=== PATIENT | female | born 1985 | race Caucasian/White ===

== ENCOUNTER → 2019-12-29 | Outpatient (CLI) | payer MEDICAID, SELFPAY | END | disposition home or self-care (01) | LOC: LABSPEC 17:47 | PROVIDERS: PCP Student in an Organized Health Care Education/Training Program; Referring Provider Nurse Practitioner Primary Care; Visit Provider Nurse Practitioner Primary Care | DX: Z20.828 Contact with and (suspected) exposure to other viral communicable diseases (principal) | CPT/HCPCS: 87635; G2023; U0003 ==

== ENCOUNTER 2020-08-07 06:41 | Emergency (ER) | payer MEDICAID, SELFPAY ==
[2020-08-07 06:42] VITALS: BP 154/94; PULSE 68; RESP 16; TEMP 36.1; O2SAT 100; BMI 57.5
[2020-08-07 06:46] VITALS: PULSE 67; RESP 16
--- NOTE | 2020-08-07 06:52 | RAD_ITS ---
STUDY: X-RAY CHEST REASON FOR EXAM: Female, 35 years old. chest pain TECHNIQUE: Single AP portable view of the chest. COMPARISON: 06/20/2017 FINDINGS: The lungs are clear and expanded. There is no demonstrated pleural abnormality. Normal size heart. Normal mediastinum and kaleigh. Normal visualized pulmonary arteries. Normal visualized aortic arch and descending thoracic aorta. Normal visualized thoracic spine. Normal visualized ribs, clavicles, and shoulders. There is no demonstrated abnormality of the visualized soft tissue structures of the upper abdomen. RAD/Chest 1 View (Portable) IMPRESSION: Normal x-ray examination of the chest. Electronically Signed: Loco Hernnádez MD at 7:26 EST Tel , Service support ,
--- NOTE | 2020-08-07 06:52 | ED.DCSUM_ITS ---
History of Present Illness <Aleta Chiu - Last Filed: 08/07/20 16:34> Informant: Patient Onset: Yesterday Activity at onset: - - Random Timing: Intermittent - Multiple episodes, Lasts - Anywhere from 10 minutes to almost an hour Quality: Aching Location: Substernal - With radiation in mid upper back, opposite area of the discomfort with some numbness there when the pain is present. Current Severity: Gone Maximum Severity: Moderate Worsened By: Nothing. Not Worsened By: Exertion, Breathing Relieved By: Nothing Associated Symptoms: Lightheadedness - This morning, just after an episode, short-lived without other associated symptoms. Negative for: Nausea, Vomiting, Diaphoresis, Dyspnea, Cough, Fever, Palpitations Narrative: 35-year-old female presenting with intermittent chest pain for almost 24 hours. Seems to occur randomly, sometimes when lying down, other times when at rest and upright. Does not seem exertional and is nonpleuritic. No radiation to jaw or arms but she does feel it in her back at times and sometimes states he feels a l ittle numb in the back when the discomfort is there. It is gone currently. She came in this morning because after one of the episode she had some lightheadedness without near syncope. No palpitations associated with that, no nausea or diaphoresis. She is a smoker but uses no illicit substances. Her father at age 52 of heart complications, details unknown. CVD Risk Factors: Family History 1' </=55, Smoking. Negative for: Hypertension, Diabetes, Hypercholesterolemia PE Risk Factors: Negative for: Recent Travel/Surgery, Recenet Immobilization, Prior DVT or PE, Cancer, OCP + Smoking + >/=35 <Kev Montaño - Last Filed: 08/09/20 16:22> Chief Complaint: Chest Pain Past Medical History <MadelinyolandaAleta - Last Filed: 08/07/20 16:34> Past Medical History: None Surgical History: cholecystectomy Smoking Status: Current every day smoker Drugs: None <Kev Montaño - Last Filed: 08/09/20 16:22> - Allergies and Home Meds Allergies/Adverse Reactions: Allergies cephalexin [Cephalexin] Allergy (Verified 08/07/20 06:44) Rash sulfamethoxazole [From Septra] Allergy (Verified 08/07/20 06:44) Rash trimethoprim [From Septra] Allergy (Verified 08/07/20 06:44) Rash venlafaxine HCl [From Effexor] Allergy (Verified 08/07/20 06:44) Other Primary Care Physician: Jeff Anderson DO [Primary Care Provider] - 3-5 Days if not improving Review of Systems General: Denies: Chills, Fever, Sweats Eyes: Denies: Visual changes - bilaterally, Diplopia ENT: Denies: Bilateral ear pain, Rhinorrhea, Sore throat Cardiovascular: Reports: Chest pain. Denies: Palpitations Respiratory: Denies: Dyspnea, Cough, Dyspnea on exertion Gastrointestinal: Denies: Abdominal pain, Nausea, Vomiting, Diarrhea, Melena, Hematochezia Genitourinary: Denies: Dysuria, Hematuria, Frequency Musculoskeletal: Reports: Back pain. Denies: Swelling, Extremity Pain Skin: Denies: Rash, Wounds Neurological: Denies: Headache, Weakness, Numbness <Kev Montaño - Last Filed: 08/09/20 16:22> Physical Exam Vital Signs/Narrative: Vital Signs Temp Pulse Resp BP Pulse Ox 08/07/20 06:46 67 16 08/07/20 06:42 96.9 F L 68 16 154/94 H 100 <Aleta Chiu - Last Filed: 08/07/20 16:34> Vital Signs/Narrative: Vital Signs Temp Pulse Resp BP Pulse Ox 08/07/20 06:46 67 16 08/07/20 06:42 96.9 F L 68 16 154/94 H 100 Inital Vital Signs reviewed: Yes General: Well nourished, Well developed, Obese, No Acute Distress Head: Normocephalic, Atraumatic Eyes: Perrl, EOMI ENT: Moist mucous membranes, No rhinorrhea Neck: Supple, Nontender Cardiovascular: Regular rate, Regular rhythm, No murmurs, - - Equal 2+/4 bilateral radial pulses. Negative for: Tachycardia Respiratory: No distress, CTA bilaterally, Chest nontender Abdomen: Soft, Nontender, Nondistended, Normal bowel sounds Back: Nontender, Normal Inspection Extremities: Nontender, No edema. Negative for: Calf Tenderness Skin: Normal color, No rash, No Trauma Neurological: Alert, Oriented x3, Cranial nerves II-XII grossly intact, Normal Strength, Normal Sensation, Normal Gait Psychological: Normal affect, Normal Mood <Kev Montaño - Last Filed: 08/09/20 16:22> Diagnostic/Tx/Re-eval - Medical Decision Making Patient signed out to me to full lab results and for reevaluation. Patient had intermittent episodes of chest discomfort radiating to her back the past 24 hours. She is also had dizziness. On my evaluation she easily complained of dizziness. She is hemodynamically stable. Her work-up is largely negative with no acute abnormalities on EKG, troponin, chest x-ray, CBC or BMP. Patient has a mild elevation of her hemoglobin but this might be secondary to her chronic smoking. Will obtain orthostatics and give a DuoNeb as patient does have some mild wheezing on exam. Statics are negative. Patient does have improvement of breath sounds with DuoNeb. Exact cause of her symptoms not clear however think she is stable for follow-up. Patient is placed on a short course of PPI in case she has GERD/esophagitis as a cause her symptoms. Patient is counseled on signs and symptoms requiring return to the emergency room. Patient is instructed to follow-up with her primary care doctor for further cardiac evaluation as she does have family history and tobacco is a risk factor. I do think she is safe for outpatient follow-up. I did discuss performing a delta troponin however given her symptoms of been intermittent over the past 24 hours think delta troponin is less necessary. Patient is agreeable with this. Patient verbalizes agreement and understand this plan. Patient discharged home in stable and improved condition. <Aleta Chiu - Last Filed: 08/07/20 16:34> Impressions Chest X-Ray 08/07/20 06:52 IMPRESSION: Normal x-ray examination of the chest. Electronically Signed: Loco Hernández MD at 7:26 EST Tel , Service support , Laboratory Tests 08/07/20 08/07/20 Range/Units 06:50 06:50 WBC 6.7 (4.4-11.0) K/mm3 RBC 4.88 (4.2-5.4) M/mm3 Hgb 15.1 H (12.0-15.0) g/dL Hct 45.4 (37-47) % MCV 93.0 (81-99) fL MCH 30.9 (27.0-32.0) pg MCHC 33.3 (32-36) g/dL RDW Std Deviation 42.9 (35.1-43.9) fl RDW Coeff of Jaiden 12.7 (11.6-14.6) % Plt Count 203 (150-450) K/mm3 MPV 10.0 (6.2-12.0) fl Immature Gran % (Auto) 0.100 (0.0-0.9) % Neut % (Auto) 60.9 (47-70) % Lymph % (Auto) 31.0 (19-41) % [place] % (Auto) 5.5 (0-10) % Eos % (Auto) 1.6 (0-5) % Baso % (Auto) 0.9 (0-1) % Absolute Neuts (auto) 4.1 (2.0-7.7) X10^3/uL Absolute Lymphs (auto) 2.07 (0.83-4.51) X10^3/uL Nucleated RBC % 0 (0-5) % Sodium 139 (136-145) mmol/L Potassium 3.9 (3.5-5.1) mmol/L Chloride 103 (98-107) mmol/L Carbon Dioxide 29.0 (21.0-32.0) mmol/L Anion Gap 7 (5-15) BUN 9 (7-18) mg/dL Creatinine 0.70 (0.55-1.02) mg/dL Estim Creat Clear Calc 128.22 ml/min Est GFR (MDRD) Af Amer 122 (>60) mL/min Est GFR (MDRD) Non-Af 101 (>60) mL/min BUN/Creatinine Ratio 12.9 (10-20) RATIO Glucose 116 H (74-106) mg/dL Calcium 9.0 (8.5-10.1) mg/dL Troponin I < 0.015 (<0.045) ng/mL - Rhythm Strip Rhythm Strip: Sinus Rhythm Rate: 71 Ectopy: None - EKG Initial EKG Interpretation: Sinus Rhythm, No Acute Injury Pattern - normal EKG Prior: Unchanged - Medical Decision Making Patient presenting with atypical chest discomfort that is unlikely acute coronary syndrome, especially in context of her normal EKG without any repolarization abnormalities. Her PERC score is 0, and her symptoms do not sound like a pulmonary embolus. We discussed that the differential includes GI etiologies, as well as cardiac. Work-up is ordered including chest x-ray and enzymes. Patient is seen just before shift change and checked out to the oncoming emergency physician, as I discussed with the patient my plan would be to allow her to be discharged home if her work-up is negative and shows nothing concerning, as long as she does not have any other concerning symptoms or findings/telemetry events while in the emergency department, to follow-up closely with her doctor possibly on a 14-day course of a PPI to see if it makes a difference. Patient was comfortable with this explanation when we discussed it. <Kev Montaño - Last Filed: 08/09/20 16:22> ED Disposition <Aleta Chiu - Last Filed: 08/07/20 16:34> <Kev Montaño - Last Filed: 08/09/20 16:22> - Plan for ED Patient: Disposition: Home or Assisted Living Instructions: ED Chest Pain, Uncertain Cause Prescriptions: Pantoprazole Sodium [Protonix] 40 mg PO DAILY #14 tab Prescription Printed Referrals: Jeff Anderson DO [Primary Care Provider] - 3-5 Days if not improving
--- NOTE | 2020-08-07 06:52 | EKG12_ITS ---
Test Reason : CP Blood Pressure : / mmHG Vent. Rate : 071 BPM Atrial Rate : 071 BPM P-R Int : 156 ms QRS Dur : 078 ms QT Int : 388 ms P-R-T Axes : 038 061 033 degrees QTc Int : 421 ms Normal sinus rhythm Normal ECG Confirmed by KATHY ROD MD ([id number]), managing editor TRINA LION ([id number]) on 08/09/2020 10:31:14 AM Referred By: BB Confirmed By:KATHY RDO MD
[2020-08-07 06:59] LABS: Absolute Lymphocyte Count 2.07 X10^3/uL (0.83-4.51); Absolute Neutrophil Count 4.1 X10^3/uL (2.0-7.7); Basophil# 0.06 X10^3/uL; Basophil% 0.9 % (0-1); Eosinophil# 0.11 X10^3/uL; Eosinophils% 1.6 % (0-5); Hematocrit 45.4 % (37-47); Hemoglobin 15.1 g/dL (12.0-15.0); Lymphocyte # 2.07 X10^3/ul (4.0); Mean Corp Hgb Conc 33.3 g/dL (32-36); Mean Corpuscular Hgb 30.9 pg (27.0-32.0); Monocyte# 0.37 X10^3/uL; Monocyte% 5.5 % (0-10); NRBC Flagged by Analyzer 0 % (0-5); Neutrophil # 4.06 X10^3/uL (2.7-7.7); Neutrophil % 60.9 % (47-70); Platelet Count 203 K/mm3 (150-450); RBC Distribution Width CV 12.7 % (11.6-14.6); RBC Distribution Width SD 42.9 fl (35.1-43.9); Red Blood Count 4.88 M/mm3 (4.2-5.4); White Blood Count 6.7 K/mm3 (4.4-11.0)
[2020-08-07 07:21] LABS: Anion Gap 7 (5-15); BUN 9 mg/dL (7-18); BUN/Creat Ratio 12.9 RATIO (10-20); Chloride 103 mmol/L (98-107); EST Glomerular Filtration Rate 101 mL/min (>60); Est Glom Filt Rate - Afr Amer 122 mL/min (>60); Estimated Creatinine Clearance 128.22 ml/min; Glucose 116 mg/dL (74-106); Potassium 3.9 mmol/L (3.5-5.1); Sodium Level 139 mmol/L (136-145)
[2020-08-07 07:49] VITALS: BP 127/69; BP 141/91; BP 159/125; PULSE 58; PULSE 64; PULSE 78
[2020-08-07 08:11] VITALS: PULSE 56; RESP 14
[2020-08-07] MEDS: Ipratropium/Albuterol Sulfate 3 ML AMPUL.NEB INHALATION (08:11)
[2020-08-07 09:25] VITALS: BP 136/88; PULSE 70; RESP 18; O2SAT 95
== END 2020-08-07 09:26 | disposition home or self-care (01) ==
PROVIDERS: Emergency Provider Emergency Medicine; PCP Student in an Organized Health Care Education/Training Program
DX: R07.89 Other chest pain (principal); R42 Dizziness and giddiness; F17.200 Nicotine dependence, unspecified, uncomplicated; E66.9 Obesity, unspecified; Z68.43 Body mass index [BMI] 50.0-59.9, adult
CPT/HCPCS: 71045; 80048; 84484; 85025; 93005; 94640; 99285; A4216

== ENCOUNTER 2021-01-04 22:44 | Emergency (ER) | payer MEDICAID, SELFPAY ==
[2021-01-04 22:45] VITALS: BP 199/101; PULSE 89; RESP 16; TEMP 36.4; O2SAT 97; BMI 57.2
--- NOTE | 2021-01-04 23:07 | EDS_ITS ---
HPI History of Present Illness Chief Complaint: Lower Extremity Injury Informant: patient Narrative Narrative: Patient is a 35-year-old female who presents to the emergency department for nontraumatic left knee pain. She states that this is a chronic issue. She has had knee pain since she was in high school. Recently flared up 2 days ago. She does take anti-inflammatories as well as muscle relaxers for this. Has not been giving her any relief. She states that she was lying in bed for 2 hours and could not fall asleep due to the pain. Any movement of the knee makes it worse. She has followed with an orthopedic doctor and has injections before in the past. She was thought to have a autoimmune disorder by her PCP and was referred to a dry box operator. She does not have an appointment until March for this. No other joint involvement. No skin rashes. No significant swelling of her leg past her baseline. She denies any systemic symptoms including any fever/chills. PFSH PFSH Home Medications Albuterol Sulfate [Proair Hfa] 1 - 2 inh PO Q4H PRN PRN 07/02/13 [History Last Taken Unknown] celecoxib 100 mg PO BID PRN 08/07/20 [History Last Taken Unknown] cyclobenzaprine 10 mg PO TID PRN PRN 08/07/20 [History Last Taken Unknown] naproxen 500 mg PO DAILY PRN PRN 08/07/20 [History Last Taken Unknown] pantoprazole 40 mg PO DAILY #14 tab 08/07/20 [Rx Last Taken Unknown] diclofenac sodium [Voltaren Arthritis Pain] 2 g TOPICAL DAILY PRN PRN 7 Days #100 g 01/05/21 [Rx Last Taken Unknown] Allergy/AdvReac Type Severity Reaction Status Date / Time cephalexin [Cephalexin] Allergy Rash Verified 01/04/21 22:44 sulfamethoxazole Allergy Rash Verified 01/04/21 22:44 [From Septra] trimethoprim [From Septra] Allergy Rash Verified 01/04/21 22:44 venlafaxine HCl Allergy Other Verified 01/04/21 22:44 [From Effexor] Social History Smoking Status: Current every day smoker tobacco type: cigarettes ROS ROS ED Constitutional Constitutional ED: Denies chills or fever(s) Eyes Eyes: Denies change in vision ENT ENT ED: Denies epistaxis or rhinorrhea Cardiovascular Cardiovascular: Denies chest pain or palpitations Respiratory/Chest Respiratory/Chest: Denies cough or dyspnea Gastrointestinal Gastrointestinal: Denies abdominal pain, diarrhea, nausea or vomiting Genitourinary Genitourinary ED: Denies dysuria, hematuria or urinary frequency Musculoskeletal Musculoskeletal: Reports arthralgias; Denies back pain or neck pain Integumentary Denies rash Neurologic Neurologic: Denies dizziness, headache(s) or weakness EXAM Physical Exam Const Vital Signs: 01/04/21 22:45 01/05/21 00:03 Temperature 97.6 F L Temperature Source Temporal Pulse Rate 89 Respiratory Rate 16 Blood Pressure 199/101 H 170/110 H Blood Pressure Mean 133 130 Pulse Ox 97 Oxygen Delivery Method Room Air Positive well nourished and well developed General Appearance ED: well developed and NAD HEENT Reports normocephalic and head/scalp atraumatic Eyes PERRL and EOMs intact bilaterally Neck supple Chest Wall inspection of chest normal Resp normal respiratory effort and clear to auscultation bilaterally Auscultation: Negative for rales, rhonchi or wheezes Cardio regular rate, regular rhythm and no murmurs GI normal to inspection, nondistended, normoactive bowel sounds and non-tender Palpation: soft; Negative for guarding or rebound tenderness present Extremity normal to inspection Extremity Narrative: Tenderness along the medial aspect of the knee. No deformity appreciated. Neurovascular intact. She does have good range of motion but does elicit pain General Extremety ED: Negative for edema General Extremity: Negative for edema Neuro no sensory deficits noted Sensorium / Orientation: alert Motor Exam: strength 5/5 throughout Psych mental status grossly normal Skin no rashes or lesions noted MDM MDM MDM Narrative Medical decision making narrative: Patient presents to the emergency department for nontraumatic knee pain that is acute on chronic. Upon arrival to the ED she is hypertensive otherwise normal vital signs. She is in no acute distress. Will check x-ray of the knee and give a dose of Toradol. Very low concern for septic arthritis. Knee x-ray interpretation: No fracture, dislocation, there is mild degenerative changes. Agree with radiologist interpretation. Patient able to ambulate on knee without difficulty. Will recommend she keep scheduled notes with the dry box operator and her orthopedic doctor. Will prescribe Voltaren gel. Recommend RICE. Return precautions are reviewed. She understands and is agreeable with plan. Discharged home in stable condition. All questions were answered. Radiography Diagnostic Testing: Radiology Impression Knee X-Ray 01/04/21 23:15 IMPRESSION: No acute findings in the left knee. at 0000 Reported and signed by: Hadley Kidd MD Electronically Signed: Hadley Kidd MD at 23:59 EDT Tel , Service support , Discharge Plan Triage Chief Complaint: Lower Extremity Injury ED Provider: Armani Rodriguez Dx/Rx/DC Orders Clinical Impression: Knee pain Instructions: ED Knee Pain of Uncertain Cause Prescriptions: New diclofenac sodium [Voltaren Arthritis Pain] 1 % gel 2 g topical DAILY PRN PRN (Reason: pain) 7 Days Qty: 100 RF: 0 No Action Albuterol Sulfate [Proair Hfa] 8.5 GM Hfa.Aer.Ad 1 - 2 inh PO Q4H PRN PRN (Reason: Asthma) RF: 0 celecoxib 100 MG capsule 100 mg PO BID PRN (Reason: Pain 1-10 Or Fever) RF: 0 cyclobenzaprine 10 MG tablet 10 mg PO TID PRN PRN (Reason: Muscle Spasm) RF: 0 naproxen 500 MG tablet 500 mg PO DAILY PRN PRN (Reason: Pain 1-10 Or Fever) RF: 0 pantoprazole 40 MG tablet 40 mg PO DAILY Qty: 14 RF: 0 Primary Care Provider: Jeff Anderson Referrals: Jeff Anderson DO [Primary Care Provider] - 3-5 Days if not improving Disposition Disposition: Home, Self Care Discharge Date/Time: 01/05/21 00:25
[2021-01-04] MEDS: Ketorolac 30 MG/ML Syringe IM (23:08)
--- NOTE | 2021-01-04 23:15 | RAD_ITS ---
EXAM: XR LEFT KNEE, 3 VIEWS : 1985 CLINICAL INDICATION: nontraumatic pain TECHNIQUE: Three views of the left knee. This report was created using [employer] report generation technology. COMPARISON: 05/24/17 FINDINGS: BONES/JOINTS: Mild tricompartmental degenerative changes. No acute fracture. No subluxation. Normal alignment. No sclerotic or destructive changes observed. SOFT TISSUES: Unremarkable. No soft tissue swelling or gas. No radiopaque foreign body. RAD/Knee 3 Views IMPRESSION: No acute findings in the left knee. at 0000 Reported and signed by: Hadley Kidd MD Electronically Signed: Hadley Kidd MD at 23:59 EDT Tel , Service support ,
[2021-01-05 00:03] VITALS: BP 170/110
== END 2021-01-05 00:25 | disposition home or self-care (01) ==
PROVIDERS: Emergency Provider Emergency Medicine; PCP Student in an Organized Health Care Education/Training Program
DX: M25.562 Pain in left knee (principal); F17.210 Nicotine dependence, cigarettes, uncomplicated; G89.29 Other chronic pain
CPT/HCPCS: 73562; 96372; 99282

== ENCOUNTER → 2021-02-27 12:52 | Outpatient (CLI) | payer MEDICAID, SELFPAY ==
--- NOTE | 2021-02-27 14:12 | NEURO ---
NCS and/or EMG Patient Report Ordering Doctor: Sammy Morgan DATE OF SERVICE: 02/27/21 Indication: Intermittent bilateral hand pain, swelling and paresthesia over the last several months. Evaluate for entrapment neuropathy. Findings: Nerve conduction studies were performed in the right and left upper extremities. The right median motor study recording the abductor pollicis brevis showed a normal amplitude, normal distal latency and normal conduction velocity. The right ulnar motor study recording the abductor digiti minimi showed a normal amplitude, normal distal latency and normal conduction velocity. Borderline focal slowing was present across the elbow. The right median sensory response recording digit two showed a normal amplitude, normal latency and borderline conduction velocity. The right ulnar sensory response recording digit five showed a normal amplitude, latency and conduction velocity. The right radial sensory response recording over the extensor snuff box showed a normal amplitude, latency and conduction velocity. The left median motor study recording the abductor pollicis brevis showed a borderline amplitude, normal distal latency and normal conduction velocity. The left ulnar motor study recording the abductor digiti minimi showed a normal amplitude, normal distal latency and normal conduction velocity. No conduction block or focal slowing was present across the elbow. The left median sensory response recording digit two showed a normal amplitude, borderline latency and mildly slowed conduction velocity. The left ulnar sensory response recording digit five showed a normal amplitude, latency and conduction velocity. The left radial sensory response recording over the extensor snuff box showed a normal amplitude, latency and conduction velocity. As routine median motor and sensory studies have a false negative rate of 25%, additional internal comparison studies were done to assess for possible median neuropathy at the wrist. These internal comparison studies (median vs. ulnar palmar mixed; median vs. ulnar sensory recording digit four; median vs. ulnar motor studies to the second lumbrical / interosseous; median vs. radial sensory studies recording digit one; median segmental sensory studies comparing the wrist-palm and palm-digit velocities) increase the electrodiagnostic sensitivity rate to 95%. However, due to statistical issues with multiple tests, it is required that at least two studies are abnormal to reduce the false positive rate to acceptable levels. Right median-ulnar sensory latencies to the ring finger showed a normal median latency compared to the ulnar. Right median-ulnar lumbrical / interosseous motor latencies showed a prolonged median latency compared to the ulnar. Left median-ulnar sensory latencies to the ring finger showed a prolonged median latency compared to the ulnar. Left median-ulnar lumbrical / interosseous motor latencies showed a prolonged median latency compared to the ulnar. Needle EMG of the left upper extremity muscles was performed. No denervation was seen in any muscle. All motor unit morphology, activation and recruitment patterns were normal. Needle EMG of the left upper extremity was omitted due to a paucity of findings in the more symptomatic limb. Impression: This is a mildly abnormal study. 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 These findings are compatible with the clinical diagnosis of carpal tunnel syndrome. 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 There is no definitive evidence of median neuropathy in the right upper extremity. Please note: electrodiagnostic testing is appropriately 95% sensitive in detecting median neuropathy across the wrist when multiple internal comparison studies are done, as was performed in this case. However, 5% of patients will have a false negative study. Presumably, in these patients, intermittent compression results in pain and paresthesias from ischemia, but without any fixed demyelination or axonal loss that can be demonstrated on electrodiagnostic studies. Thus, clinical correlation is required in the interpretation of this negative study. Santos Yusuf D.O. Multi Select Codes Neurology Neurology Interp Codes: 92701-01 Musc test done w/n test comp (interp) and 78661-94 Nr cnd test 13/> studies (interp)
== END ==
PROVIDERS: PCP Student in an Organized Health Care Education/Training Program
DX: G56.03 Carpal tunnel syndrome, bilateral upper limbs (principal)
CPT/HCPCS: 95886; 95913

== ENCOUNTER 2023-05-24 07:05 | Inpatient (IN) | payer MEDICAID, SELFPAY ==
[2023-05-24] VITALS (43 sets, daily range): BP systolic 131–178; BP diastolic 56–96; PULSE 64–93; RESP 18; TEMP 36.1–37.2; O2SAT 92–100; BMI 57.2
--- NOTE | 2023-05-24 | PLAC_PTH ---
PATIENT: CHEYENNE MEJIA V LOC: [facility] U#:[id number] AGE/SX: 38/F ROOM: WP019 RE05/24/[address]: Dr. Roxanna Escobar MD : 1985 BED: 1 DIS: 05/25/2023 SPEC #: [id number] RECD: 05/25/23 13:57 STATUS: MAHAMED REKelly #: [id number] HELGA: 05/24/23 00:[address]: Roxanna Escobar DEPT: SURGICAL PATHOLOGY RECD BY: Nikolay Carrillo ENTERED: 05/27/23 09:30 SP TYPE: PLACENTA OTHR DR: Dr. Jeff Anderson, DO Tissues: Placenta, NOS Procedures: Surgery Specimen Level V HEADER OPERATION: Vaginal delivery PRE-OP DIAGNOSIS: Chronic hypertension TISSUE SUBMITTED: Placenta MICROSCOPIC DIAGNOSIS Polo placenta (393 gm): Umbilical cord - trivascular with no evidence of inflammation. Placental membranes - mild chronic inflammation of decidua. Placental disc - focal nonspecific chronic villitis, Bala-Romulo change and mildly increased intraparenchymal fibrin plaques. AM:concetta 05/29/2023 MICROSCOPIC DESCRIPTION Slides are reviewed. GROSS DESCRIPTION SPECIMEN: PLACENTA / CLINICAL INFORMATION: A. Weight: 2.35 kg B. Gestational Age: 37 weeks C. Sex: Female PLACENTAL WEIGHT (POST FIXATION): 393 gm PLACENTAL DIMENSIONS: 15.0 x 15.0 x 3.5 cm PLACENTAL SHAPE: Usual ovoid. A detached piece of placental tissue is also noted. PLACENTAL WEIGHT FOR GESTATIONAL AGE: Within 10-99th percentile MEMBRANES - Present A. Insertion: Marginal B. Site of rupture from edge: The membranes are fragmented and appear to be ruptured at the margin of placental disc. C. Color of membrane: Randolph-miller D. Abnormalities: An area of blood clot is noted in the membrane. UMBILICAL CORD - Present A. Color: Randolph-miller B. Insertion: Paracentral C. Length: 21.0 cm D. Diameter: 0.9 cm E. Number of vessels: Three F. Abnormalities: None Also present in the container is a detached segment of umbilical cord measuring 22.0 cm in length and 0.8 to 1.2 cm in diameter. PLACENTAL DISC - Present A. Color of surface: Randolph-miller B. surface abnormalities: None C. Maternal cotyledons: Intact with minimal tears. Maternal surface appears to be disrupted and completeness of placenta cannot be assessed due to disrupted nature of the placenta. D. Attached retro placental clot: No clot E. Cut surface: Dark red and spongy F. Lesions: None G. Separate clot: Absent SECTIONS SUBMITTED: 1. Membrane roll 2. Cord, maternal end, focal area of blood clot in the membranes 3. Detached segment of umbilical cord, end 4. Placental disc, and maternal surfaces 5. Placental disc, and maternal surfaces 6. Placental disc, and maternal surfaces SJ:concetta 05/27/2023 TC:5 CPT: 49925
[2023-05-24] MEDS: CHLORHEXIDINE GLUC 2% CLOTH 1 EACH TOWELETTE TOPICAL (07:30)
[2023-05-24] MEDS: Oxytocin 15 Units/NS 250ml 15 UNITS/250 ML IV.SOLN 2 UNITS IV (08:20)
[2023-05-24] MEDS: Lactated Ringers 1,000 ML 50 ML IV (08:21)
[2023-05-24 08:50] LABS: Absolute Lymphocyte Count 1.58 X10^3/uL (0.83-4.51); Absolute Neutrophil Count 4.8 X10^3/uL (2.0-7.7); Basophil# 0.04 X10^3/uL; Basophil% 0.6 % (0-1); Eosinophil# 0.06 X10^3/uL; Eosinophils% 0.9 % (0-5); Hematocrit 42.5 % (37-47); Hemoglobin 14.1 g/dL (12.0-15.0); Lymphocyte # 1.58 X10^3/ul (0.83-4.51); Lymphocyte % 22.6 % (19-41); Mean Corp Hgb Conc 33.2 g/dL (32-36); Mean Corpuscular Hgb 31.1 pg (27.0-32.0); Mean Corpuscular Volume 93.6 fL (81-99); Mean Platelet Vol. 11.7 fl (6.2-12.0); Monocyte# 0.45 X10^3/uL; Monocyte% 6.4 % (0-10); NRBC Flagged by Analyzer 0 % (0-5); Neutrophil # 4.83 X10^3/uL (2.7-7.7); Neutrophil % 68.9 % (47-70); Platelet Count 163 K/mm3 (150-450); RBC Distribution Width SD 44.9 fl (35.1-43.9); Red Blood Count 4.54 M/mm3 (4.2-5.4)
[2023-05-24 09:32] LABS: Amphetamine Urine VISTA NEGATIVE (<1000 ng/mL); Barbiturate Urine VISTA NEGATIVE (< 200 ng/mL); Benzodiazepine Urine VISTA NEGATIVE (< 200 ng/mL); Cocaine Urine VISTA NEGATIVE (< 300 ng/mL); Ecstacy Urine VISTA NEGATIVE (< 500 ng/mL); Methadone Urine VISTA NEGATIVE (< 300 ng/mL); PCP Urine VISTA NEGATIVE (< 25 ng/mL); THC Urine VISTA NEGATIVE (< 50 ng/mL); Vista UDS pH Range 6
[2023-05-24 09:41] LABS: Syphilis Antibodies Non-reactive
[2023-05-24] MEDS: LACTATED RINGERS 500 ML 999 ML IV ×3 (09:54→14:50)
[2023-05-24] MEDS: Amnioinfusion- 0.9% NS 1,000 ML IV.SOLN. 200 ML INTRA-UTER (12:48)
[2023-05-24] MEDS: fentaNYL-bupivacaine (epidural) 100 ML BAG EPIDURAL (14:35)
--- NOTE | 2023-05-24 14:44 | PCM.HP.OB ---
HPI - General General Date of Admission: 05/24/23 Date of Service: 05/24/23 Chief Complaint: Induction of labor HPI Narrative CHEYENNE MEJIA, is a 38 -year-old female 7 para 2-0-4-2 who presents at 37 weeks gestation with a EDC of 06/12/2023 for induction of labor. She has a history of chronic hypertension, prepregnancy BMI of 48, current BMI 57,. Her is also complicated to date by advanced maternal age, history of a LEEP of the cervix, history of depression and anxiety, and tobacco use disorder. Patient admits she has used marijuana during the . She also has a history of rheumatoid arthritis GERD and restless legs. Maternal Data Information Final SHRAVAN: 06/14/23 Gestational age: 37 0/7 [facility] Medical History (Updated 05/24/23 @ 14:[address] Roxanna Escobar MD) Anxiety Asthma Autoimmune disease Chronic hypertension Home Medications Albuterol Sulfate [Proair Hfa] 1 - 2 inh PO Q4H PRN PRN Asthma 07/02/13 [History Last Taken Unknown] diclofenac sodium 1 % topical gel (Voltaren Arthritis Pain) 2 g topical DAILY PRN PRN pain 7 days #100 grams 01/05/21 [Rx Last Taken Unknown] aspirin 81 mg chewable tablet (Aspirin Childrens) 1 tab PO DAILY pre-e 05/24/23 [History Last Taken 05/23/23 20:00 1 TAB] hydroxychloroquine 200 mg tablet (Plaquenil) 200 mg PO BID Rheumatoid arthritis 05/24/23 [History Last Taken 05/24/23 06:00 200 mg] Allergy/AdvReac Type Severity Reaction Status Date / Time cephalexin [Cephalexin] Allergy Rash Verified 05/24/23 07:59 sulfamethoxazole Allergy Shortness Verified 05/24/23 07:59 [From Septra] of breath trimethoprim [From Septra] Allergy Shortness Verified 05/24/23 07:59 of breath venlafaxine HCl Allergy Hallucinati Verified 05/24/23 07:59 [From Effexor] ons Surgical History (Updated 05/24/23 @ 08:12 by Carolyne Dumont) History of surgery Social History Smoking Status: Current every day smoker tobacco type: cigarettes History Elective abortions Hx Para 2 Spontaneous abortions Hx # Term Pregnancies Ectopic pregnancies Hx # Pregnancies Multiple births # of living children ROS Constitutional Constitutional: Denies fatigue, fever(s) or malaise Eyes Eyes: Denies change in vision ENT HEENT: Denies dizziness or headache(s) Cardiovascular Cardiovascular: Denies chest pain, dyspnea or lightheadedness Respiratory/Chest Respiratory/Chest: Denies cough or dyspnea Gastrointestinal Gastrointestinal: Denies change in bowel habits Genitourinary Genitourinary: Denies burning urination or genital lesions Integumentary Integumentary: Denies rash Neurologic Neurologic: Denies confusion, dizziness, headache(s), numbness or weakness Vital Signs Vital Signs Vital Signs: 05/24/23 07:47 05/24/23 07:47 05/24/23 07:48 Temperature Temperature Source Pulse Rate 88 76 Blood Pressure 136/88 H BP Systolic 136 BP Diastolic 88 Pulse Ox 05/24/23 07:48 05/24/23 07:49 05/24/23 07:49 Temperature Temperature Source Temporal Pulse Rate Blood Pressure BP Systolic BP Diastolic Pulse Ox 98 99 05/24/23 07:49 05/24/23 08:41 05/24/23 08:42 Temperature 99.0 F Temperature Source Temporal Pulse Rate Blood Pressure 133/71 H BP Systolic 133 BP Diastolic 71 Pulse Ox 05/24/23 08:42 05/24/23 08:41 05/24/23 08:41 Temperature 97.9 F Temperature Source Pulse Rate 73 Blood Pressure BP Systolic BP Diastolic Pulse Ox 99 05/24/23 10:01 05/24/23 10:01 05/24/23 10:01 Temperature Temperature Source Pulse Rate 72 Blood Pressure 147/85 H BP Systolic 147 BP Diastolic 85 Pulse Ox 100 05/24/23 10:02 05/24/23 10:02 05/24/23 11:25 Temperature 97.9 F Temperature Source Temporal Pulse Rate Blood Pressure 140/81 H BP Systolic 140 BP Diastolic 81 Pulse Ox 05/24/23 11:25 05/24/23 11:25 05/24/23 11:27 Temperature Temperature Source Temporal Pulse Rate 68 Blood Pressure BP Systolic BP Diastolic Pulse Ox 100 05/24/23 11:27 05/24/23 12:19 05/24/23 12:19 Temperature 98.6 F Temperature Source Pulse Rate 68 Blood Pressure 133/63 H BP Systolic 133 BP Diastolic 63 Pulse Ox 05/24/23 12:19 05/24/23 12:19 05/24/23 14:07 Temperature 98.6 F Temperature Source Temporal Pulse Rate 71 Blood Pressure BP Systolic BP Diastolic Pulse Ox 05/24/23 14:07 05/24/23 14:12 05/24/23 14:12 Temperature Temperature Source Pulse Rate 69 Blood Pressure BP Systolic BP Diastolic Pulse Ox 97 98 05/24/23 14:17 05/24/23 14:17 05/24/23 14:22 Temperature Temperature Source Pulse Rate 68 75 Blood Pressure BP Systolic BP Diastolic Pulse Ox 98 05/24/23 14:22 05/24/23 14:27 05/24/23 14:27 Temperature Temperature Source Pulse Rate 81 Blood Pressure 178/96 H BP Systolic 178 BP Diastolic 96 Pulse Ox 97 05/24/23 14:27 05/24/23 14:30 05/24/23 14:30 Temperature Temperature Source Pulse Rate 80 Blood Pressure 162/84 H BP Systolic 162 BP Diastolic 84 Pulse Ox 98 05/24/23 14:32 05/24/23 14:32 05/24/23 14:30 Temperature Temperature Source Temporal Pulse Rate 80 Blood Pressure BP Systolic BP Diastolic Pulse Ox 98 05/24/23 14:35 05/24/23 14:35 05/24/23 14:30 Temperature 97.0 F L Temperature Source Pulse Rate 81 Blood Pressure 172/80 H BP Systolic 172 BP Diastolic 80 Pulse Ox 05/24/23 14:38 05/24/23 14:38 05/24/23 14:37 Temperature Temperature Source Pulse Rate 76 Blood Pressure 151/72 H BP Systolic 151 BP Diastolic 72 Pulse Ox 98 05/24/23 14:40 05/24/23 14:40 05/24/23 14:42 Temperature Temperature Source Pulse Rate 91 85 Blood Pressure 156/72 H BP Systolic 156 BP Diastolic 72 Pulse Ox 05/24/23 14:42 Temperature Temperature Source Pulse Rate Blood Pressure BP Systolic BP Diastolic Pulse Ox 97 Weight Weight: 185.236 kg Body Mass Index (BMI) 57.2 Physical Exam Const alert and no apparent distress General Appearance: cooperative HEENT normocephalic Resp normal respiratory effort Cardio regular rate GI soft to palpation GI Narrative: gravid, nontender, appropriate for gestational age Extremity no calf tenderness General Extremity: edema Skin no wounds Rashes: No rashes noted Psych activity/motor behavior normal Labs Labs Labs: Blood Type O POSITIVE Antibody Screen NEGATIVE Hct 42.5 % (37-47) Hgb 14.1 g/dL (12.0-15.0) Syphilis Total Ab Non-reactive Assessment & Plan (1) 37 or more weeks gestation of : PLAN: Risk benefits and alternatives of induction at 37+ gestational weeks for chronic hypertension and multiple other risk factors were discussed with the patient, her questions were answered to her satisfaction she desires to proceed. Pitocin and artificial rupture membranes as needed for induction. May use routine pain control measures as available and as needed. Estimated weight is less than 4000 g and pelvis clinically adequate to expect vaginal delivery. (2) Supervision of other high risk pregnancies, third trimester: (3) Maternal obesity syndrome in third trimester: (4) BMI 50.0-59.9, adult: (5) Chronic hypertension affecting : (6) Advanced maternal age during in third trimester: (7) Tobacco use dis-antepart: (8) Marijuana use during :
--- NOTE | 2023-05-24 15:52 | EX.PCM.OBRPT ---
Maternal Data Information Final SHRAVAN: 06/12/23 Gestational age: 37 2/7 Vaginal Delivery Maternal Presentation Maternal Presentation: Medically Indicated Induction Type of Induction: Pitocin and Amniotomy Operative Information Date of Procedure: 05/24/23 Pre-Operative Diagnosis: chronic HTN, maternal obesity, 37 weeks, advanced maternal age Post-Operative Diagnosis: same Surgery / Procedure Performed: Forceps Assisted Vaginal Delivery Type of Anesthesia: Epidural Special Medications: none Drain: - (none) Estimated Blood Loss: 300 Time of Delivery: :23 Findings Description of Procedure: Patient was straight catheterized in the usual sterile fashion for approximately 50 cc of clear yellow urine. A vigorous female infant was delivered MARGO over an intact perineum. A loose nuchal cord ?1 was easily reduced. The remainder the infant was delivered with maternal pushing and gentle traction only in less than 15 seconds. The Pitocin infusion was initiated for active management of the third stage. The cord was clamped and cut after 1 minute. The was attended to by the waiting nursing staff. The placenta was delivered spontaneously and intact. The cervix and vagina were intact. Sponge and needle counts were correct. A vaginal sweep was completed by me. Presentation: MARGO Amniotic Membrane Rupture Type: Artificial Amniotic Fluid Description: Clear Placental Delivery Description: Spontaneous Placenta Disposition: Sent to Pathology Cord Vessel Description: 3 Vessels Cord Entanglement: Around neck x 1, loose Nuchal Cord Compression: Without compression Cord Gases: ABG and VBG A Gender: Female (Nathalia) (1 minute): 8 (5 minute): 9 Delayed Cord Clamping: Yes Post Vaginal Delivery Medications Given After Delivery: IV Pitocin Episiotomy Description: None Laceration: None Complication Complications: None
[2023-05-24] MEDS: Oxytocin 15 Units/NS 250ml 15 UNITS/250 ML IV.SOLN 83 UNITS IV (16:08)
[2023-05-24] MEDS: NIFEdipine 30 MG Tablet PO (18:51)
[2023-05-24] MEDS: 0.9% Saline Lock 10 ML Syringe IV (19:15)
[2023-05-24] MEDS: Hydroxychloroquine 200 MG Tablet PO (22:00)
[2023-05-24] MEDS: Acetaminophen 500 MG Tablet 1000 MG PO (22:02)
[2023-05-25 03:44] VITALS: PULSE 85; O2SAT 97
[2023-05-25 03:45] VITALS: BP 124/66; PULSE 85; PULSE 90; RESP 16; TEMP 37.2; O2SAT 93; O2SAT 95
[2023-05-25] MEDS: Acetaminophen 500 MG Tablet 1000 MG PO ×2 (04:55→10:59)
[2023-05-25 05:01] LABS: Absolute Lymphocyte Count 1.72 X10^3/uL (0.83-4.51); Absolute Neutrophil Count 5.7 X10^3/uL (2.0-7.7); Basophil# 0.04 X10^3/uL; Basophil% 0.5 % (0-1); Eosinophil# 0.03 X10^3/uL; Eosinophils% 0.4 % (0-5); Hematocrit 40.4 % (37-47); Hemoglobin 13.5 g/dL (12.0-15.0); Lymphocyte # 1.72 X10^3/ul (0.83-4.51); Lymphocyte % 21.3 % (19-41); Mean Corp Hgb Conc 33.4 g/dL (32-36); Mean Corpuscular Hgb 31.7 pg (27.0-32.0); Mean Corpuscular Volume 94.8 fL (81-99); Mean Platelet Vol. 10.7 fl (6.2-12.0); Monocyte# 0.51 X10^3/uL; Monocyte% 6.3 % (0-10); NRBC Flagged by Analyzer 0 % (0-5); Neutrophil # 5.74 X10^3/uL (2.7-7.7); Neutrophil % 71.1 % (47-70); Platelet Count 155 K/mm3 (150-450); RBC Distribution Width CV 13.1 % (11.6-14.6); Red Blood Count 4.26 M/mm3 (4.2-5.4); White Blood Count 8.1 K/mm3 (4.4-11.0)
[2023-05-25 08:13] VITALS: BP 139/67; PULSE 78; O2SAT 97
[2023-05-25 08:14] VITALS: BP 139/67; PULSE 80; RESP 18; TEMP 37.3; O2SAT 97
--- NOTE | 2023-05-25 09:08 | CASEMGMT ---
Social Work Assessment Labor and Delivery Unit Date/Time of referral: 05/25/23, 8:31am Referred by: Dr. Escobar Date/Time of intervention: 05/25/23, 8:40am Reason for referral: substance abuse History obtained from: FIDENCIO Household Composition: FIDENCIO ANGELLA Ozzie Hooper(they have been together about a year), daughter who is 17 and son who is 19, and now baby Nathalia. Ozzie has a 2 and 3 year old, the 3 year old is with the state, the 2 year old is with her mom and Ozzie is fighting for custody. Parent/Guardian status: FIDENCIO is guardian of this child. Medical History: MOB: history of anxiety, depression, autoimmune disease, chronic hypertension, asthma, obesity. Baby: Born 15:23 on 05/[birth year], Apgars 8 and 9 at one and five minutes. Weight 2540g. Educational Status: FIDENCIO completed high school, ANGELLA did not complete high school. Financial Status: No concerns. 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 FIDENCIO plans to bottle feed. She did not buy a lot of diapers or formula yet, as her other two children had allergies with both. She will buy more once she knows what will work for Nathalia. Transportation: They have 2 cars Childcare/Caregivers: FIDENCIO, ANGELLA and looking at daycare for when FIDENCIO returns to work Programs/Agencies involved: FIDENCIO has agencies involved for her older children. Her son has autism and her daughter is bipolar. She states he daughter goes to [facility]. Her daughter has had frequent hospitalizations, but has been home since March and is doing well at present. We spoke about the difficulty of managing older children who need extra support. She states her daughter was diagnosed at the age of 7. SW offered support to FIDENCIO in regard to her older children. FIDENCIO not in counseling at present, but her daughter's support system is also a support to her. Children's Services/Legal Issues: As per FIDENCIO Children's Services is not involved with Ozzie's two year old, but they do have a cuff knitter and are trying to get custody. Behavioral health issues: Mental Health History: FIDENCIO has a history of depression and anxiety. She states she is stable with both at present. She has Ativan but uses it very rarely. MOB has been in counseling in the past, not at present. She states her daughter's support system is also supportive to her. She states she has not had in the past. MOB denies any suicidality. Substance abuse: MOB states smoked marijuana throughout the due to morning sickness. She does not plan to use any longer. Tox screens negative for mom and baby, meconium pending. Safety: MOB reports no safety concerns at home. Family/Social Stressors: None other than a new baby, and older children with special needs Support Systems: MOB's mother, outside agencies depression/anxiety/shaken baby/safe sleeping/Help Me Grow/Mental Health Resources/[facility] Resources: FOB walked in as SW was giving resources to MOB. SW reviewed all of the above resources with MOB and FOB. We spoke specifically about depression and anxiety and warning signs. SW encouraged MOB to reach out to per PCP or OB should she notice symptoms, and also encouraged her to return to counseling if she starts having symptoms. MOB states understanding and is open to this. SW did give MOB a list of mental health agencies in [facility] along w/a list of [facility] Resources and crisis hotline numbers. Assessment: SW met w/MOB, baby in room but sleeping. MOB spoke w/IVAN, answered all questions appropriately. SW explained to MOB would have to call Children's Services due to marijuana use, she states she was aware of this but wanted to be honest about her marijuana use. SW called Children's Services, spoke w/Sakina Magana about marijuana use and the custody issues for Ozzie. She will likely call MOB, and follow up w/her on Saturday at home. Plan: Baby to go home w/MOB and FOVinicius, no further social service needs. LESLIE Guerra
--- NOTE | 2023-05-25 10:56 | PCM.DC.SUM ---
Providers Date of Admission: 05/24/23 Primary Care Physician: Dr. Jeff Anderson DO Reason For Visit: VAGINAL DELIVERY Diagnosis Discharge Diagnosis (1) 37 or more weeks gestation of : Status: Acute (2) Supervision of other high risk pregnancies, third trimester: Status: Acute Code(s): O09.893 - Supervision of other high risk pregnancies, third trimester (3) Maternal obesity syndrome in third trimester: Status: Acute Code(s): O99.213 - Obesity complicating , third trimester (4) BMI 50.0-59.9, adult: Status: Acute Code(s): Z68.43 - Body mass index [BMI] 50.0-59.9, adult (5) Chronic hypertension affecting : Status: Chronic Code(s): O10.919 - Unspecified pre-existing hypertension complicating , unspecified trimester (6) Advanced maternal age during in third trimester: Status: Acute (7) Tobacco use dis-antepart: Status: Acute Code(s): O99.330 - Smoking (tobacco) complicating , unspecified trimester (8) Marijuana use during : Status: Acute Code(s): O99.320 - Drug use complicating , unspecified trimester; F12.90 - Cannabis use, unspecified, uncomplicated (9) (spontaneous vaginal delivery): Status: Acute Code(s): O80 - Encounter for full-term uncomplicated delivery Medications at Discharge Home Medications Albuterol Sulfate [Proair Hfa] 1 - 2 inh PO Q4H PRN PRN Asthma 07/02/13 diclofenac sodium 1 % topical gel (Voltaren Arthritis Pain) 2 g topical DAILY PRN PRN pain 7 days #100 grams 01/05/21 hydroxychloroquine 200 mg tablet (Plaquenil) 200 mg PO BID Rheumatoid arthritis 05/24/23 Hospital Course Operations None Procedures None Summary of Care Provided Minutes Spent on Discharge: 15 Hospital Course: Patient had . Hospital course was uneventful. Physical Exam Narrative Patient seen at bedside. Feeling good. Ambulating and voiding without difficulty. Denies any headache, vision changes, CP or SOB. Formula feeding. Desires discharge home today. Const alert and no apparent distress General Appearance: cooperative and comfortable Exam Limitations: no limitations HEENT normocephalic Eyes General Eye: normal appearance of both eyes Neck full ROM General: normal visual inspection Chest Chest: symmetrical chest wall rise Resp normal respiratory effort and normal air movement Effort and Inspection: symmetric chest movement Auscultation: clear to auscultation bilaterally Cardio regular rate and regular rhythm GI normal to inspection, nondistended, normoactive bowel sounds Back/Spine normal ROM Extremity full ROM and no calf tenderness General Extremity: normal exam except as noted Skin no rashes or lesions noted Neuro CN's II-XII intact bilaterally Psych mental status grossly normal Weight / BMI Weight Weight: 408 lb 6 oz Body Mass Index (BMI) 57.2 ABG / Lab / Microbiology Data 05/25/23 04:50 Laboratory: Laboratory Results - last 24 hr 05/25/23 04:50: WBC 8.1, RBC 4.26, Hgb 13.5, Hct 40.4, MCV 94.8, MCH 31.7, MCHC 33.4, RDW Std Deviation 45.0 H, RDW Coeff of Jaiden 13.1, Plt Count 155, MPV 10.7, Immature Gran % (Auto) 0.400, Neut % (Auto) 71.1 H, Lymph % (Auto) 21.3, [place] % (Auto) 6.3, Eos % (Auto) 0.4, Baso % (Auto) 0.5, Absolute Neuts (auto) 5.7, Absolute Lymphs (auto) 1.72, Nucleated RBC % 0 D/C Instructions Discharge Diet: No restrictions Discharge Activity: Return to Normal Activity, May Shower and May Take a Tub Bath May resume sexual activity in: 4-6 weeks Weight Bearing Status: Weight bearing as tolerated Call your doctor if you observe: Fever of 101 or Higher, Inability to urinate, Using more than 1 pad per hour, Shortness of breath, Dizziness, Swelling in the ankles, Chest pain, Calf discomfort and Uncontrolled pain Please Follow Up With: Roxanna Escobar MD When: 1 week Meaningful Use Info Meaningful Use Diagnoses (Choose all that apply): None applicable Discharge Plan Admission Admit Date/Time: 05/24/23 07:05 Primary Reason for Your Visit: Labor and Delivery Attending Provider: Roxanna Escobar Primary Care Provider: Jeff Anderson Discharge Orders/Prescriptions Prescriptions: Continued Albuterol Sulfate [Proair Hfa] 8.5 GM Hfa.Aer.Ad 1 - 2 inh PO Q4H PRN PRN (Reason: Asthma) diclofenac sodium [Voltaren Arthritis Pain] 1 % gel 2 g topical DAILY PRN PRN (Reason: pain) 7 Days Qty: 100 0RF hydroxychloroquine [Plaquenil] 200 mg tablet 200 mg PO BID Discontinued aspirin [Aspirin Childrens] 81 mg tablet,chewable 1 tab PO DAILY Referrals / Follow Up: Jeff Anderson DO [Primary Care Provider] - Disposition Disposition (needs filled in before D/C Order can be placed): Home, Self Care
[2023-05-25] MEDS: Hydroxychloroquine 200 MG Tablet PO (10:59)
[2023-05-25 12:51] VITALS: PULSE 81; O2SAT 96
[2023-05-25 12:52] VITALS: BP 138/63; PULSE 80; PULSE 82; RESP 16; TEMP 37.3; O2SAT 97
[2023-05-25] MEDS: NIFEdipine 30 MG Tablet PO (16:25)
[2023-05-31 09:05] LABS: Pathology Specimen OB SEE PATHOLOGY REPORT
--- NOTE | 2023-07-04 08:38 | CASEMGMT ---
Social Work SW did receive notification dated 05/28/23 from [facility] stating a case was open
--- NOTE | 2023-07-04 11:21 | CASEMGMT ---
Addendum entered by Marissa Cloud 08/17/23 06:49: Social Work SW received a letter dated 07/17/22 stated the Assessment/Investigation is complete with [facility], and no need for ongoing services. LESLIE Guerra Original Note: Social Work SW did receive a letter from [facility] dated 05/28/23 stating that a referral was accepted for assessment/investigation. LESLIE Guerra
== END 2023-05-25 16:45 | disposition home or self-care (01) | DRG 560 ==
PROVIDERS: Admitting Provider Obstetrics & Gynecology; PCP Student in an Organized Health Care Education/Training Program; Referring Provider Obstetrics & Gynecology; Visit Provider Obstetrics & Gynecology
DX: O10.92 Unspecified pre-existing hypertension complicating childbirth (principal); Z37.0 Single live birth; O99.324 Drug use complicating childbirth; F12.99 Cannabis use, unspecified with unspecified cannabis-induced disorder; F17.210 Nicotine dependence, cigarettes, uncomplicated; O26.03 Excessive weight gain in pregnancy, third trimester; O69.81X0 Labor and delivery complicated by cord around neck, without compression, not applicable or unspecified; Z79.2 Long term (current) use of antibiotics; O99.334 Smoking (tobacco) complicating childbirth; Z3A.37 37 weeks gestation of pregnancy
CPT/HCPCS: 59025; 59050; 80307; 85025; 86780; 86850; 86900; 86901; 88307; 99221; J7030; J7120; A4216; G0378

== ENCOUNTER 2024-11-20 14:56 | Emergency (ER) | payer SELFPAY ==
[2024-11-20 14:56] VITALS: BP 157/100; PULSE 111; RESP 18; TEMP 36.6; O2SAT 99; BMI 58.3
--- NOTE | 2024-11-20 15:12 | EDS_ITS ---
HPI History of Present Illness Chief Complaint: Chest Pain Informant: patient Onset/Context/Timing Onset: Hours (1) Activity at onset: sudden Timing: Continuous Quality: Positive for Burning Location: Substernal Worsened By: Nothing Relieved By: Nothing Associated Symptoms: Positive for Nausea, Vomiting, Lightheadedness and Palpitations; Negative for Diaphoresis, Dyspnea, Cough, Fever or Acid Reflux Narrative Narrative: Patient presents with chest pain that began approximate 1 hour prior to arrival. Patient describes as burning sensation. Patient states it is over the substernal area. Patient states nothing makes it worse and nothing makes it better. Patient states it radiates into her back. Patient admits to some diaphoresis. Patient denies any nausea or vomiting. Patient denies any shortness of breath or cough. Patient also admits to some lightheadedness and palpitations. Patient states it feels like her heart is racing at times. CVD Risk Factors: Positive for Family History 1' </=55 and Smoking; Negative for Hypertension, Diabetes or Hypercholesterolemia PE Risk Factors: Negative for Recent Travel/Surgery, Recent Immobilization, Prior DVT or PE, Cancer or OCP + Smoking + >/=35 PFSH PFSH Medical History Marijuana use during Tobacco use dis-antepart Advanced maternal age during in third trimester Chronic hypertension affecting BMI 50.0-59.9, adult Maternal obesity syndrome in third trimester Supervision of other high risk pregnancies, third trimester 37 or more weeks gestation of Asthma Anxiety Autoimmune disease Chronic hypertension Home Medications ?Medication ?Instructions ?Recorded ?Last Taken ?Type Albuterol Sulfate [Proair Hfa] 1 - 2 inh PO Q4H PRN MN N Asthma 07/02/13 Unknown History diclofenac sodium 1 % topical gel 2 g topical DAILY MN N PRN pain 7 01/05/21 Unknown Rx (Voltaren Arthritis Pain) days #100 grams hydroxychloroquine 200 mg tablet 200 mg PO BID Rheumat oid arthritis 05/24/23 05/24/23 06:00 History (Plaquenil) 200 mg nifedipine 30 mg tablet,extended 30 mg PO DAILY #30 ta bs 05/25/23 Unknown Rx release 24 hr (Procardia XL) Allergy/AdvReac Type Severity Reaction Status Date / Time cephalexin (Cephalexin) Allergy Rash Verified 11/20/24 14:58 sulfamethoxazole (From Allergy Shortness Verified 11/20/24 14:58 Septra) of breath trimethoprim (From Septra) Allergy Shortness Verified 11/20/24 14:58 of breath venlafaxine HCl (From Allergy Hallucinati Verified 11/20/24 14:58 Effexor) ons Surgical History History of surgery Social History Smoking Status: Current every day smoker tobacco type: cigarettes and e- cigarettes ROS ROS ED Constitutional Constitutional ED: Denies chills or fever(s) Eyes Eyes: Denies blurry vision or change in vision ENT ENT ED: Denies rhinorrhea or sore throat Cardiovascular Cardiovascular: Reports chest pain, palpitations and racing heartbeat Respiratory/Chest Respiratory/Chest: Denies cough or dyspnea Gastrointestinal Gastrointestinal: Denies nausea or vomiting Genitourinary Genitourinary ED: Denies dysuria or hematuria Musculoskeletal Musculoskeletal: Reports back pain; Denies neck pain Integumentary Denies abscess or rash Neurologic Neurologic: Denies headache(s) or weakness Allergic/Immunologic Allergic/Immunologic ED: Denies mouth swelling or urticaria EXAM Physical Exam Const Vital Signs: 11/20/24 14:56 11/20/24 14:56 11/20/24 15:11 Temperature 97.8 F Temperature Source Oral Pulse Rate 111 H Respiratory Rate 18 Respiratory Effort Normal Non-Labored Blood Pressure 157/100 H Blood Pressure Mean 119 Pulse Ox 99 Oxygen Delivery Method Room Air Room Air 11/20/24 15:56 11/20/24 16:35 11/20/24 16:56 Temperature Temperature Source Pulse Rate 89 86 77 Respiratory Rate 18 18 Respiratory Effort Blood Pressure 121/59 H 121/54 H 133/73 H Blood Pressure Mean 79 93 Pulse Ox 98 96 Oxygen Delivery Method 11/20/24 18:00 Temperature Temperature Source Pulse Rate 74 Respiratory Rate 18 Respiratory Effort Blood Pressure 117/83 H Blood Pressure Mean 94 Pulse Ox 96 Oxygen Delivery Method Positive well nourished and well developed Constitutional Narrative: BMI is 58.3 General Appearance ED: well developed and NAD HEENT Reports moist mucous membranes Neck supple and no JVD Chest Wall Chest Narrative: There is mild tenderness over the substernal area. There is no edema or ecchymosis. There is no subcutaneous emphysema palpated. Resp normal respiratory effort and clear to auscultation bilaterally Cardio regular rate and regular rhythm GI soft to palpation, non-tender and non-distended Extremity normal to inspection Neuro oriented x3, CN's II-XII intact bilaterally and no sensory deficits noted Sensorium / Orientation: awake and alert Motor Exam: strength 5/5 throughout Psych mental status grossly normal Heart Score History: Slightly/Non-Suspicious ECG: Normal Age: </= 45 years Risk Factors: 1 or 2 Risk Factors Troponin: </= Normal Limit Score: 1 MDM MDM MDM Narrative Medical decision making narrative: Differential diagnosis includes cardiac dysrhythmia, cardiac ischemia, gastroesophageal reflux disease, pneumonia, bronchitis, and anxiety. EKG will be obtained to assess for cardiac dysrhythmia cardiac ischemia. Chest x-ray will be obtained to assess for pneumonia and bronchitis. CBC will be obtained to assess for leukocytosis and anemia. Basic metabolic profile will be obtained to assess for electrolyte abnormality and renal function. High-sensitivity troponin will be obtained to assess for cardiac ischemia. 2-hour repeat high- sensitivity troponin will be obtained to assess for ongoing cardiac ischemia. Lab Data Attestation: I reviewed the patient's lab results. Lab results narrative: CBC was reviewed and was within normal limits. Basic metabolic profile was reviewed. Glucose was slightly elevated at 124. The remainder is within normal limits. Initial high-sensitivity troponin was reviewed and was normal at 6. 2- hour repeat high-sensitivity troponin was reviewed and was normal at 8. Labs: Laboratory Results - last 24 hr 11/20/24 11/20/24 15:25 17:33 WBC 7.1 RBC 4.08 L Hgb 12.2 Hct 36.9 L MCV 90.4 MCH 29.9 MCHC 33.1 RDW Std Deviation 46.5 H RDW Coeff of Jaiden 14.0 Plt Count 217 MPV 9.9 Immature Gran % (Auto) 0.300 Neut % (Auto) 68.1 Lymph % (Auto) 23.7 Pepin % (Auto) 6.2 Eos % (Auto) 1.1 Baso % (Auto) 0.6 Absolute Neuts (auto) 4.9 Absolute Lymphs (auto) 1.69 Nucleated RBC % 0 Sodium 136 Potassium 3.8 Chloride 101 Carbon Dioxide 24.1 Anion Gap 11 BUN 10 Creatinine 0.73 Estim Creat Clear Calc 191.44 Est GFR (MDRD) Non-Af 107 BUN/Creatinine Ratio 13.7 Glucose 124 H Calcium 9.5 Troponin T High Sens 6 Troponin T Hi Sens 2 Hr 8 Radiography Chest X-Ray - ED: 2 View, Read by ED Physician, Read by Radiologist and No Acute Disease Diagnostic Testing: Clinical Impression(s) from Imaging Studies Chest X-Ray 11/20/24 15:50 IMPRESSION: NO ACUTE FINDINGS. Reading Location: [id number] and lateral chest x-ray was obtained. There are 2 views. On my independent interpretation, lung dale are clear. There is normal cardiac silhouette. Bony thorax is normal. There is no acute process noted. Radiologist also interpreted the x-ray and agrees. EKG Initial EKG: Attestation: I personally reviewed and interpreted this EKG as follows: Interpretation: No Acute Injury Pattern and Sinus Tachycardia (101) Comments: EKG was obtained. On my independent interpretation, it showed a sinus tachycardia with a rate of 101. MN interval, QRS interval, and QTc intervals were all normal. [place] was normal. There are no acute ST or T wave changes. Prior EKG tracings: available for review Prior: Unchanged (08/07/2020) Treatment and Re-Evaluation :: Patient was given aspirin and nitroglycerin. Patient had no change in her pain with aspirin and nitroglycerin. Patient was given a GI cocktail. Patient had no change with this. The patient was given an injection of Toradol. Patient was advised of her findings. Patient has a HEART score of 1. Patient was advised that this is low risk for acute cardiac event. Patient was instructed to follow-up with her primary care physician in 5 to 7 days. Patient was instructed to return if worse in any way. Patient understood and was agreeable with the plan. All questions were answered. Discharge Plan Triage Chief Complaint: Chest Pain ED Provider: Mickey Chávez Dx/Rx/DC Orders Clinical Impression: Chest pain, Elevated blood pressure reading Instructions: ED Chest Pain, Uncertain Cause Prescriptions: No Action Albuterol Sulfate [Proair Hfa] 8.5 GM Hfa.Aer.Ad 1 - 2 inh PO Q4H PRN PRN (Reason: Asthma) diclofenac sodium [Voltaren Arthritis Pain] 1 % gel 2 g topical DAILY PRN PRN (Reason: pain) 7 Days Qty: 100 0RF hydroxychloroquine [Plaquenil] 200 mg tablet 200 mg PO BID nifedipine [Procardia XL] 30 mg tablet extended release 24hr 30 mg PO DAILY Qty: 30 3RF Primary Care Provider: Jeff Anderson Referrals: Jeff Anderson DO [Primary Care Provider] - 5-7 Days Print Language: Omani Disposition Disposition: Home, Self Care
[2024-11-20 15:48] LABS: Absolute Lymphocyte Count 1.69 X10^3/uL (0.83-4.51); Absolute Neutrophil Count 4.9 X10^3/uL (2.0-7.7); Basophil# 0.04 X10^3/uL; Basophil% 0.6 % (0-1); Eosinophil# 0.08 X10^3/uL; Eosinophils% 1.1 % (0-5); Hematocrit 36.9 % (37-47); Hemoglobin 12.2 g/dL (12.0-15.0); Lymphocyte # 1.69 X10^3/ul (0.83-4.51); Lymphocyte % 23.7 % (19-41); Mean Corp Hgb Conc 33.1 g/dL (32-36); Mean Corpuscular Hgb 29.9 pg (27.0-32.0); Mean Corpuscular Volume 90.4 fL (81-99); Mean Platelet Vol. 9.9 fl (6.2-12.0); Monocyte# 0.44 X10^3/uL; Monocyte% 6.2 % (0-10); NRBC Flagged by Analyzer 0 % (0-5); Neutrophil # 4.85 X10^3/uL (2.7-7.7); Neutrophil % 68.1 % (47-70); Platelet Count 217 K/mm3 (150-450); RBC Distribution Width SD 46.5 fl (35.1-43.9); Red Blood Count 4.08 M/mm3 (4.2-5.4); White Blood Count 7.1 K/mm3 (4.4-11.0)
--- NOTE | 2024-11-20 15:50 | RAD_ITS ---
PROCEDURE: CHEST PA AND LATERAL 11/20/2024 REASON FOR EXAM: CHEST PAIN TECHNIQUE: CHEST PA AND LATERAL COMPARISON: Chest radiograph 08/07/2020. FINDINGS: Hardware: None. Partially visualized surgical hardware overlying the mouth (only visualized on PA radiograph). Heart: The heart size is normal. Mediastinum: The mediastinal contour is unremarkable. Lungs: No focal consolidation, pleural effusion or pneumothorax. Bones: Degenerative changes are identified within the thoracic spine. RAD/Chest PA and Lateral IMPRESSION: NO ACUTE FINDINGS. Reading Location: [id number]
[2024-11-20 15:56] VITALS: BP 121/59; PULSE 89; RESP 18; O2SAT 98
[2024-11-20] MEDS: Nitroglycerin SL (ED/IMG/CATH) 0.4 MG TABLET SL ×2 (16:24→16:35)
[2024-11-20] MEDS: Aspirin 81 MG TAB.CHEW 324 MG PO (16:24)
[2024-11-20 16:28] LABS: Anion Gap 11 (5-15); BUN 10 mg/dL (4-19); BUN/Creat Ratio 13.7 RATIO (10-20); Calcium,Total 9.5 mg/dL (7.6-11.0); Carbon Dioxide 24.1 mmol/L (21.0-32.0); Chloride 101 mmol/L (98-108); Creatinine, Serum 0.73 mg/dL (0.70-1.20); EST Glomerular Filtration Rate 107 (>60); Estimated Creatinine Clearance 191.44 ml/min (50-250); Glucose 124 mg/dL (70-99); Potassium 3.8 mmol/L (3.3-5.1); Sodium Level 136 mmol/L (133-145); Troponin T High Sensitivity 6 ng/L (<=14)
[2024-11-20 16:35] VITALS: BP 121/54; PULSE 86
[2024-11-20 16:56] VITALS: BP 133/73; PULSE 77; RESP 18; O2SAT 96
[2024-11-20] MEDS: Mag Hydrox/Al Hydrox/Simeth 30 ML UDC PO (17:41)
[2024-11-20] MEDS: Lidocaine 2% Viscous15 ML UDC 15 ML PO (17:41)
[2024-11-20 18:00] VITALS: BP 117/83; PULSE 74; RESP 18; O2SAT 96
[2024-11-20 18:22] LABS: Troponin T High Sens 2 HR 8 ng/L (<=14)
[2024-11-20 19:00] VITALS: BP 146/81; PULSE 68; RESP 18; TEMP 36.8; O2SAT 96
[2024-11-20] MEDS: Ketorolac 30 MG/ML Syringe IV (19:18)
== END 2024-11-20 19:33 | disposition home or self-care (01) ==
PROVIDERS: Emergency Provider Emergency Medicine; PCP Student in an Organized Health Care Education/Training Program; Visit Provider Emergency Medicine
DX: R07.9 Chest pain, unspecified (principal); I10 Essential (primary) hypertension; F17.210 Nicotine dependence, cigarettes, uncomplicated; F17.290 Nicotine dependence, other tobacco product, uncomplicated; Z79.899 Other long term (current) drug therapy
CPT/HCPCS: 71046; 80048; 84484; 85025; 93005; 96374; 99285; A4216